=== PATIENT | female | born 1970 | race Caucasian/White ===

== ENCOUNTER → 2017-04-01 | Outpatient (CLI) | payer OTHER ==
[2017-04-01 17:30] LABS: BASO % 0.2 %; BASO ABS # 0.02 K/uL (0-0.2); COMPLETE YES; EOS % 2.6 %; HEMATOCRIT 43.8 % (37-47); LYMPH % 40.6 %; LYMPH ABS # 3.45 K/uL (1.2-3.4); MEAN CELL VOLUME 90.7 fL (80-100); MEAN CORPUSCULAR HEMOGLOBIN 31.5 pg (25-34); MEAN CORPUSCULAR HGB CONC 34.7 g/dl (32-36); MEAN PLATELET VOLUME 10.1 fL (7.4-10.4); MONO % 5.9 %; NEUT % 50.7 %; PLATELET COUNT 317 K/uL (130-400); RED BLOOD COUNT 4.83 M/uL (4.2-5.4); WHITE BLOOD COUNT 8.49 K/uL (4.8-10.8)
[2017-04-01 18:01] LABS: BLOOD UREA NITROGEN 10 mg/dl (7-18); CREATININE 0.85 mg/dl (0.60-1.20); GLUCOSE 87 mg/dl (70-99)
[2017-04-01 18:02] LABS: ALT/SGPT 36 U/L (12-78); BUN/CREATININE RATIO 12.1 (10-20); CALCIUM 9.3 mg/dl (8.5-10.1); CARBON DIOXIDE 31 mmol/L (21-32); CHLORIDE 104 mmol/L (98-107); CHOLESTEROL 217 mg/dl (0-200); SODIUM 140 mmol/L (136-145); TRIGLYCERIDES 67 mg/dl (0-150); VERY LOW DENSITY LIPOPROT CALC 13 mg/dl
[2017-04-01 18:11] LABS: ALB/GLOB RATIO 1.1 (0.9-2); ALKALINE PHOSPHATASE 46 U/L (45-117); AST/SGOT 18 U/L (15-37); CHOLESTEROL/HDL RATIO 4.5; HDL CHOLESTEROL 48 mg/dl; LDL CHOLESTEROL CALCULATED 156 mg/dl; RHEUMATOID FACTOR < 10.0 U/mL (0-15)
[2017-04-02 07:41] LABS: ESTIMATED AVERAGE GLUCOSE 123 mg/dl; HA1C FLAG Normal (Normal)
[2017-04-05 16:48] LABS: IGA SERUM 183 mg/dL (81-463); TIS TRANS IGA 1 U/mL (<4)
[2017-04-07 14:39] LABS: ANA TITER 1:40 TITER (<1:40)
== END | disposition home or self-care (01) ==
LOC: C.LABBFT 11:07
PROVIDERS: ATTEND Family Medicine
DX: R53.83 Other fatigue (principal); M25.50 Pain in unspecified joint

== ENCOUNTER → 2017-06-03 | Outpatient (CLI) | payer OTHER ==
[2017-06-03 19:18] LABS: FERRITIN 50.7 ng/ml (8.0-388.0); RHEUMATOID FACTOR < 10.0 U/mL (0-15)
[2017-06-05 14:40] LABS: ANTI-SS-A <1.0 NEG AI (<1.0 NEG); ANTI-SS-B <1.0 NEG AI (<1.0 NEG)
== END | disposition home or self-care (01) ==
LOC: C.LABBFT 10:56
PROVIDERS: ATTEND Family Medicine
DX: L65.9 Nonscarring hair loss, unspecified (principal); M25.50 Pain in unspecified joint; R76.0 Raised antibody titer

== ENCOUNTER → 2017-12-03 | Outpatient (CLI) | payer OTHER ==
--- NOTE | 2017-12-05 12:03 | POLYSOMNOGRAPH REPORT ---
CLINICAL DATA: A 89year-old female with BMI of 29.[address] Duran with snoring and poor sleep quality. She awakens frequently through the night and often sleeps through her alarm. Her [place] sleepiness score was 3/24. On the evening of 12/03/2017, a home sleep apnea test was performed using a [employer] type 3 monitor. RECORDING RESULTS: Total recording time was 10 hours. The patient's monitoring time and estimated sleep time was 7.8 hours. RESPIRATORY DATA: Very mild sleep apnea was documented. The MARA was 5.7. There were 2 obstructive apneic episodes and 42 hypopneic episodes. The longest respiratory event was 49 seconds. OXIMETRY DATA: Transient hypoxemia was seen. Oxygen jacque was 83%. Mean saturation was 93%. Time below 89% was 3 minutes. HEART RATE DATA: Heart rates ranged from 31-77 beats per minute. SNORING DATA: Snoring was recorded throughout the night. IMPRESSION: Very mild sleep apnea/hypopnea with a respiratory event index of 5.7 with mild nocturnal hypoxemia. RECOMMENDATIONS: The patient may benefit from weight loss, use of an oral appliance, or repeat sleep study with CPAP. Clinical correlation is needed. ROXANNED
== END | disposition home or self-care (01) ==
LOC: C.NEUR 10:33
DX: G47.33 Obstructive sleep apnea (adult) (pediatric) (principal)